=== PATIENT | female | born 1990 | race Caucasian/White ===

== ENCOUNTER 2023-03-03 16:43 | Emergency (ER) | payer OTHER, SELFPAY ==
[2023-03-03 16:44] VITALS: BP 125/87; PULSE 93; RESP 20; TEMP 36.8; O2SAT 99
--- NOTE | 2023-03-03 17:05 | ED.GENADULT ---
HPI - General Adult General Chief complaint: Unspecified <TA Carrasco Last Filed: 03/03/23 17:16> Stated complaint: ST, headache and body aches <TA Carrasco Last Filed: 03/03/23 17:16> Time Seen by Provider: 03/03/23 18:58 <TA Carrasco Last Filed: 03/03/23 17:16> Source: patient <TA Carrasco Last Filed: 03/03/23 17:16> Mode of arrival: ambulatory <TA Carrasco Last Filed: 03/03/23 17:16> Limitations: no limitations <TA Carrasco Last Filed: 03/03/23 17:16> History of Present Illness HPI narrative: Patient is a 32 y/o female who presents to the ED with c/o URI sx's since Friday. Patient sore throat, sinus pressure, sinus congestion, myalgias, loss of appetite, subjective fevers, chills, nausea. She has been taking sudafed, nyquil, and theraflu for her sx's without significant improvement. She has not taken anything for her symptoms today. She does report daughter has been sick with similar sx's and received abx for ear infection. Patient denies vomiting, abdominal pain, cough, SOB, CP. <TA Carrasco Last Filed: 03/03/23 17:16> Related Data Allergies/adverse reactions: Allergies Allergy/AdvReac Type Severity Reaction Status Date / Time No Known Allergies Allergy Verified 03/03/23 16:46 <TA Carrasco Last Filed: 03/03/23 17:16> Review of Systems Constitutional: Constitutional: Reports body ache(s), Reports chills and Reports poor appetite <TA Carrasco Last Filed: 03/03/23 17:16> ENT: Reports nasal congestion, Reports nasal discharge, Reports sinus pain, Reports sinus pressure and Reports sore throat <Lisseth Jimenez PA-C Salvatore Last Filed: 03/03/23 17:16> Cardiovascular: Cardiovascular: Denies chest pain <Lisseth Jimenez PA-C Salvatore Last Filed: 03/03/23 17:16> Respiratory: Respiratory: Denies chest congestion and Denies cough <Lisseth Jimenez PA-C Salvatore Last Filed: 03/03/23 17:16> Gastrointestinal: Gastrointestinal: Denies abdominal pain, Reports nausea and Denies vomiting <Lisseth Jimenez PA-C Salvatore Last Filed: 03/03/23 17:16> Exam Const: General: cooperative, comfortable, no acute distress and tired appearing <TA Carrasco Last Filed: 03/03/23 17:16> Nutritional Appearance: well nourished <Lisseth Jimenez PA-C Salvatore Last Filed: 03/03/23 17:16> Orientation/consciousness: oriented to person <Lisseth Jimenez PA-C Salvatore Last Filed: 03/03/23 17:16> Limitations: no limitations <ALEJANDRINA Carrasco Salvatore Last Filed: 03/03/23 17:16> HENMT: Ears: TM normal on the right and TM abnormal erythematous (mildly erythematous L TM); not bulging and not perforated <Lisseth Jimenez PA-C Salvatore Last Filed: 03/03/23 17:16> Face/Nose/Sinus: sinus tenderness <TA Carrasco Last Filed: 03/03/23 17:16> Mouth: Yes Normal oral and palatal mucosa present <Lisseth Jimenez PA-C Salvatore Last Filed: 03/03/23 17:16> Throat: tonsils normal, uvula midline and posterior oropharynx abnormal (redness) erythema; no exudates <TA Carrasco Last Filed: 03/03/23 17:16> Resp: Effort & Inspection: normal respiratory effort and able to speak in complete sentences <TA Carrasco Last Filed: 03/03/23 17:16> Auscultation: clear to auscultation bilaterally <Lisseth Jimenez PA-C - Last Filed: 03/03/23 17:16> Cardio: Rate: regular rate <Lisseth Jimenez PA-C - Last Filed: 03/03/23 17:16> Rhythm: regular rhythm <Lisseth Jimenez PA-C - Last Filed: 03/03/23 17:16> Course Vital Signs Vital signs: Vital Signs Temperature 98.3 F 03/03/23 16:44 Pulse Rate 93 03/03/23 16:44 Respiratory Rate 20 03/03/23 16:44 Blood Pressure 125/87 03/03/23 16:44 Pulse Oximetry 99 03/03/23 16:44 Oxygen Delivery Room Air 03/03/23 16:44 Temperature 98.3 F
[2023-03-03] MEDS: ACETAMINOPHEN 500 MG TABLET 1000 MG PO (17:11)
[2023-03-03] MEDS: IBUPROFEN 600 MG TABLET PO (17:11)
[2023-03-03] MEDS: ONDANSETRON HCL ODT 4 MG TABLET PO (17:15)
[2023-03-03 17:42] LABS: Strep Group A RT-PCR NOT DETECTED (Negative)
[2023-03-03 17:53] LABS: Influenza A QL RT-PCR Negative (Negative); Influenza B QL RT-PCR Negative (Negative); SARS-CoV-2 RNA PCR Negative (Negative)
--- NOTE | 2023-03-03 19:12 | PC.NURSE ---
Assumed care of pt from MARY Bernal at this time.
[2023-03-03 19:27] VITALS: BP 132/79; PULSE 90; RESP 17; O2SAT 99
== END 2023-03-03 19:29 | disposition home or self-care (01) ==
PROVIDERS: Physician Assistant; Emergency Provider Physician Assistant
DX: B34.9 Viral infection, unspecified (principal)
CPT/HCPCS: 87636; 87651; 99283; A9270

== ENCOUNTER 2023-07-03 19:41 | Emergency (ER) | payer OTHER, SELFPAY ==
--- NOTE | ~2023-07-03 | US_ITS ---
EXAMINATION: US OB transvaginal DATE: 07/03/2023 23:44 INDICATION: Pelvic pain during first trimester TECHNIQUE: Real-time pelvic transabdominal and transvaginal ultrasound was performed. COMPARISON: None. FINDINGS: The uterus measures 6.7 x 4.2 x 5.2 cm. There is an intrauterine fluid collection measuring 6 mm which correlates with an estimated gestational age of 5 weeks and 2 day(s) (+/-) 3 day(s). No f etal pole is identified. The right ovary measures 1.4 x 2.2 x 1.5 cm. The left ovary measures 1.4 x 2 .7 x 2.9 cm. There is normal vascular flow in the ovaries. There is no free fluid in the pelvis. IMPRESSION: 1. Intrauterine gestational sac without visible pole, likely due to early gestation. Estimated gestational age of 5 weeks and 2 day(s) (+/-) 3 day(s) and an estimated delivery date of 03/02/2024 b ased on mean sac diameter. Reviewed, dictated and finalized at location F. IMPRESSION: 1. Intrauterine gestational sac without visible pole, likely due to early gestation. Estimated gestational age of 5 weeks and 2 day(s) (+/-) 3 day(s) an d an estimated delivery date of 03/02/2024 based on mean sac diameter.
[2023-07-03 19:55] VITALS: BP 128/84; PULSE 96; RESP 20; TEMP 36.4; O2SAT 99
[2023-07-03 20:44] LABS: Influenza A QL RT-PCR Negative (Negative); Influenza B QL RT-PCR Negative (Negative); RSV RNA, RT-PCR Negative (Negative); SARS-CoV-2 RNA PCR Negative (Negative)
--- NOTE | 2023-07-03 23:11 | ED.GENADULT ---
HPI - General Adult General Chief complaint: Nausea/Vomiting/Diarrhea Stated complaint: vomiting/diarrhea Time Seen by Provider: 07/03/23 22:04 History of Present Illness HPI narrative: This is a 32-year-old female presenting with 3 days of nausea vomiting and diarrhea. Her family is also sick with similar/symptoms. Patient also has sharp left lower quadrant pain. Patient is approximately 5 weeks by last menstrual. [facility] and had ultrasound showing no gestational sac in the uterus. She is supposed to return there tomorrow for repeat hCG but was told to present to emergency department if she developed abdominal pain. Patient denies vaginal bleeding discharge or urinary symptoms. Related Data Allergies Allergy/AdvReac Type Severity Reaction Status Date / Time No Known Allergies Allergy Verified 03/03/23 16:46 Exam Narrative: APPEARANCE: No apparent distress. Head: atraumatic. EYES: EOMI, NOSE: Atraumatic NECK: Trachea midline RESPIRATORY: No increased rate of breathing CARDIOVASCULAR: RRR, ABDOMINAL: Tenderness to palpation in the suprapubic and left lower quadrant. No guarding rebound MUSCULOSKELETAl: No obvious deformities NEURO: Alert. Moving 4/4 extremities SKIN:: Warm, dry. Normal color PSYCHIATRIC: Normal affect Course Vital Signs Vital signs: Vital Signs Temperature 97.6 F 07/03/23 19:55 Pulse Rate 96 07/03/23 19:55 Respiratory Rate 20 07/03/23 19:55 Blood Pressure 128/84 07/03/23 19:55 Pulse Oximetry 99 07/03/23 19:55 Oxygen Delivery Room Air 07/03/23 19:55 Temperature 97.6 F 07/03/23 19:55 Pulse Rate 93 07/04/23 00:54 Respiratory Rate 16 07/04/23 00:54 Blood Pressure 133/82 07/04/23 00:54 Pulse Oximetry 100 07/04/23 00:54 Oxygen Delivery Room Air 07/03/23 19:55 Medical Decision Making [facility] Narrative Medical decision making narrative: -Course: 32-year-old female presenting with symptoms of gastroenteritis and left lower quadrant pain. Presentation is complicated by an early of unknown location. Ultrasound was ordered which showed an intrauterine gestational sac. Abdominal pain likely due to gastroenteritis. [facility] -DDX includes but is not limited to: gastroenteritis, ectopic -Co-morbidities complicating care: -Social determinants of health: unemployed lives with her child -Independent interpretation of studies: Labs reviewed transvaginal ultrasound showed intrauterine gestational sac -Interventions: Tylenol -Shared decision making / Disposition: discharge Vital Signs Vital Signs: Vital Signs Temperature 97.6 F 07/03/23 19:55 Pulse Rate 96 07/03/23 19:55 Respiratory Rate 20 07/03/23 19:55 Blood Pressure 128/84 07/03/23 19:55 Pulse Oximetry 99 07/03/23 19:55 Oxygen Delivery Room Air 07/03/23 19:55 Temperature 97.6 F 07/03/23 19:55 Pulse Rate 93 07/04/23 00:54 Respiratory Rate 16 07/04/23 00:54 Blood Pressure 133/82 07/04/23 00:54 Pulse Oximetry 100 07/04/23 00:54 Oxygen Delivery Room Air 07/03/23 19:55 Lab Data 07/04/23 00:28 07/04/23 00:28 Labs: Lab Results 07/03/23 07/04/23 07/04/23 Range/Units 19:58 00:00 00:27 WBC (4.5-10.0) K/mm3 RBC (4.2-5.4) M/mm3 Hgb (12.0-15.0) g/dL Hct (37.0-47.0) % MCV (80-100) fl MCH (26-34) pg MCHC (32-36) g/dl RDW (11.5-14.5) % Plt Count (150-375) k/mm3 MPV (7.4-10.4) fl Immature Gran % (Auto) (0-0.5) % Neut % (Auto) (45.5-73.1) % Lymph % (Auto) (18.3-44.2) % [place] % (Auto) (2.6-8.5) % Eos % (Auto) (0-4.4) % Baso % (Auto) (0.2-1.2) % Lymph # (Auto) (0.9-3.2) K/mm3 [place] # (Auto) (0.1-0.6) K/mm3 Eos # (Auto) (0-0.3) K/mm3 Baso # (Auto) (0.0-0.1) K/mm3
[2023-07-04 00:02] LABS: Glucose Point of Care 78 mg/dl (65-105)
[2023-07-04 00:34] LABS: Basophils Absolute Auto 0.1 K/mm3 (0.0-0.1); Basophils Percent Auto 0.4 % (0.2-1.2); Eosinophils Absolute Auto 0.2 K/mm3 (0-0.3); Eosinophils Percent Auto 1.5 % (0-4.4); Hemoglobin 14.5 g/dL (12.0-15.0); Immature Granulocyte Absolute 0.04 K/mm3 (0.00-0.031); Immature Granulocyte Percent A 0.4 % (0-0.5); Lymphocytes Absolute Auto 1.89 K/mm3 (0.9-3.2); Lymphocytes Percent Auto 16.6 % (18.3-44.2); Mean Corpuscular Hemoglobin 30.2 pg (26-34); Mean Corpuscular Volume 91.7 fl (80-100); Monocytes Absolute Auto 0.7 K/mm3 (0.1-0.6); Monocytes Percent Auto 6.2 % (2.6-8.5); Neutrophils Absolute Auto 8.5 K/mm3 (1.3-6.7); Neutrophils Percent Auto 74.9 % (45.5-73.1); Platelet Count Result 298 k/mm3 (150-375); Red Cell Distribution Width 13.2 % (11.5-14.5); White Blood Count 11.4 K/mm3 (4.5-10.0)
[2023-07-04 00:49] LABS: Appearance Urine Clear (Clear); Bacteria Urine None Seen /hpf; Bilirubin Urine Negative (Negative); Blood Urine 2+ (Negative); Color Urine Dark Yellow (Yellow); Glucose Urine UA Negative (Negative); Ketones Urine 1+ mg/dL (Negative); Leukocyte Esterase Ur Negative LEU/UL (Negative); Mucus Urine Present /lpf; Need Manual Microscopic Reviewed; Nitrate Urine Negative (Negative); Protein Urine 1+ mg/dL (Negative); Squamous Epithelial Cell Urine Occasional /hpf (Few); WBC Urine 0-5 /hpf (0-3); pH Urine 5.5 (5.0-9.0)
[2023-07-04 00:51] LABS: Specific Grav Ur 1.032 (1.001-1.035)
[2023-07-04 00:52] LABS: Add Urine Microscopic? YES
[2023-07-04] MEDS: ACETAMINOPHEN 500 MG TABLET 1000 MG PO (00:52)
[2023-07-04 00:54] VITALS: BP 133/82; PULSE 93; RESP 16; O2SAT 100
[2023-07-04 00:54] LABS: Alanine Aminotransferase 110 U/L (6-35); Albumin Level 4.6 g/dL (3.5-5.1); Alkaline Phosphatase 60 U/L (38-126); Anion Gap 9 mmol/L (8-16); Aspartate Amino Transferase 71 U/L (14-36); Bilirubin,Total 0.3 mg/dL (0.2-1.3); Blood Urea Nitrogen 11 mg/dL (7-17); Calcium 9.3 mg/dL (8.4-10.2); Carbon Dioxide 20 mmol/L (22-30); Chloride 107 mmol/L (98-107); Estimated CRCL calculation 131 ml/min; Estimated Glomerular Filt Rate > 60; Glucose 94 mg/dL (65-110); Potassium 3.3 mmol/L (3.4-5.0); Sodium 136 mmol/L (137-145)
--- NOTE | 2023-07-04 01:45 | PC.NURSE ---
Pt tolerating PO intake. Will be discharged home.
[2023-07-04 02:12] VITALS: BP 134/76; PULSE 87; RESP 20; O2SAT 99
== END 2023-07-04 02:13 | disposition home or self-care (01) ==
PROVIDERS: Emergency Provider Emergency Medicine
DX: O99.611 Diseases of the digestive system complicating pregnancy, first trimester (principal); K52.9 Noninfective gastroenteritis and colitis, unspecified; Z20.822 Contact with and (suspected) exposure to COVID-19; Z3A.01 Less than 8 weeks gestation of pregnancy
CPT/HCPCS: 36415; 76817; 80053; 82948; 84702; 85025; 85461; 86850; 86900; 86901; 87637; 99284; A9270

== ENCOUNTER 2023-08-15 18:23 | Emergency (ER) | payer OTHER, SELFPAY ==
--- NOTE | ~2023-08-15 | US_ITS ---
EXAMINATION: US OB <= 14 weeks fetus DATE: 08/15/2023 22:18 INDICATION: Pelvic pain. Spotting. TECHNIQUE: Real-time transabdominal pelvic ultrasound was performed. COMPARISON: Ultrasound 07/03/2023 FINDINGS: The uterus measures 9.7 x 9.1 x 9.6 cm. There is an intrauterine gestational sac. The crown rum p length measures 4.3 cm, which correlates with an estimated gestational age of 11 weeks and 1 day(s) (+/-) 1 week(s) and 0 day(s). heart motion is identified measuring 149 beats per minute (bpm) by M-mode Doppler. The right ovary measures 3.7 x 3.5 x 3.2 cm. The left ovary measures 3.7 x 2.1 x 3 .1 cm. There is no free fluid in the pelvis. IMPRESSION: 1. Single living intrauterine gestation with estimated date of delivery of 03/02/2024 based on the u ltrasound from 07/03/2023. Reviewed, dictated and finalized at location E. IMPRESSION: 1. Single living intrauterine gestation with estimated date of delivery of based on the ultrasound from 07/03/2023.
[2023-08-15 18:26] VITALS: BP 149/80; PULSE 67; RESP 18; TEMP 36.3; O2SAT 100
[2023-08-15 20:18] LABS: Basophils Absolute Auto 0.1 K/mm3 (0.0-0.1); Basophils Percent Auto 0.6 % (0.2-1.2); Eosinophils Absolute Auto 0.7 K/mm3 (0-0.3); Eosinophils Percent Auto 6.9 % (0-4.4); Hematocrit 38.2 % (37.0-47.0); Hemoglobin 12.4 g/dL (12.0-15.0); Immature Granulocyte Absolute 0.03 K/mm3 (0.00-0.031); Immature Granulocyte Percent A 0.3 % (0-0.5); Lymphocytes Absolute Auto 4.21 K/mm3 (0.9-3.2); Lymphocytes Percent Auto 40.6 % (18.3-44.2); Mean Corpuscular HGB Conc 32.5 g/dl (32-36); Mean Corpuscular Hemoglobin 30.5 pg (26-34); Mean Corpuscular Volume 93.9 fl (80-100); Monocytes Absolute Auto 0.5 K/mm3 (0.1-0.6); Monocytes Percent Auto 4.4 % (2.6-8.5); Neutrophils Absolute Auto 4.9 K/mm3 (1.3-6.7); Neutrophils Percent Auto 47.2 % (45.5-73.1); Platelet Count Result 303 k/mm3 (150-375); Red Blood Count 4.07 M/mm3 (4.2-5.4); Red Cell Distribution Width 13.4 % (11.5-14.5); White Blood Count 10.4 K/mm3 (4.5-10.0)
[2023-08-15 20:27] LABS: Bacteria Urine Rare /hpf; Non Pathogenic Casts 0-2; Squamous Epithelial Cell Urine None Seen /hpf (Few); WBC Urine 0-5 /hpf (0-3)
[2023-08-15 20:32] LABS: Appearance Urine Clear (Clear); Bilirubin Urine Negative (Negative); Blood Urine 3+ (Negative); Color Urine Yellow (Yellow); Glucose Urine UA Negative (Negative); Ketones Urine Negative (Negative); Leukocyte Esterase Ur Negative LEU/UL (Negative); Nitrate Urine Negative (Negative); Protein Urine Negative (Negative); Urobilinogen Urine 0.2 mg/dL (<2.0); pH Urine 6.5 (5.0-9.0)
[2023-08-15 20:38] LABS: Add Urine Microscopic? YES
[2023-08-15 20:56] LABS: Alanine Aminotransferase 13 U/L (6-35); Albumin Level 4.3 g/dL (3.5-5.1); Alkaline Phosphatase 51 U/L (38-126); Anion Gap 6 mmol/L (4-12); Aspartate Amino Transferase 19 U/L (14-36); Bilirubin,Total 0.5 mg/dL (0.2-1.3); Blood Urea Nitrogen 9 mg/dL (7-17); Calcium 9.4 mg/dL (8.4-10.2); Carbon Dioxide 24 mmol/L (22-30); Chloride 107 mmol/L (98-107); Estimated CRCL calculation 154 ml/min; Estimated Glomerular Filt Rate > 60; Glucose 121 mg/dL (65-110); Potassium 3.7 mmol/L (3.4-5.0); Sodium 137 mmol/L (137-145)
[2023-08-15] MEDS: SODIUM CHLORIDE 0.9% IV 1,000 ML 999 ML IV CONT (21:42)
--- NOTE | 2023-08-15 22:47 | ED.GENADULT ---
HPI - General Adult General Chief complaint: Vaginal Bleeding Stated complaint: 11 weeks with vaginal bleeding Time Seen by Provider: 08/15/23 21:21 History of Present Illness HPI narrative: patient is a 32-year-old female who presents emergency department with chief complaint of vaginal bleeding. The patient reports that she is approximately 11 weeks and reports that she started having some bleeding this evening and know his reduced to spotting. The patient states she has abdominal cramping reports he has not had an ultrasound to confirm whether she has an intrauterine . Related Data Home Medications Medication Instructions Recorded Confirmed vits no.126-ferrous fum tablet PO 08/08/23 28 mg iron-folic acid 800 mcg tablet (Classic ) Allergies Allergy/AdvReac Type Severity Reaction Status Date / Time No Known Allergies Allergy Verified 08/15/23 18:29 Review of Systems Review of Systems: A 10 system review of systems was completed on the patient and is negative except for what is stated in the HPI. Nursing and ancillary documentation was reviewed. PMFSH Past Medical History Medical History Preeclampsia Suppression of menses Surgical History Surgical History H/O LEEP History of ear surgery Family History Family History Father Hypertension Social History Social History Smoking status: Never smoker Alcohol intake: never Substance use: never Do You Feel Safe in your Home?: Yes Lack of Transportation: No Lack of Food: Never True Current Housing: I Have Housing Concerned About Future Housing: No Difficulty Paying Gas/Electric Bills: No Difficulty Paying for Meds: No Currently Unemployed: No Education: Trade/Vocational Certificate Difficulty w/ Childcare or Family Care: No Living arrangements: with family Occupation/Education: occupation Gender identity (if verbalized by the patient): Female Exam Narrative: GENERAL: Well-appearing, well-nourished, and in no acute distress. HEAD: Normocephalic, atraumatic. EYES: PERRLA and EOMI. ENT: Nares clear, no rhinorrhea or epistaxis. Mucous membranes moist. NECK: Supple. CHEST: Clear to auscultation. No respiratory distress. HEART: Regular rate and rhythm. No murmur heard. Normal peripheral pulses. ABDOMEN: Soft, nontender, nondistended, normal active bowel sounds. EXTREMITIES: Normal range of motion. No edema. SKIN: Warm, dry, no rash. NEURO: No focal deficits. Alert and oriented x3. PSYCH: Normal mood and affect. Course Vital Signs Vital signs: Vital Signs Temperature 36.3 C L 08/15/23 18:26 Pulse Rate 67 08/15/23 18:26 Respiratory Rate 18 08/15/23 18:26 Blood Pressure 149/80 H 08/15/23 18:26 Pulse Oximetry 100 08/15/23 18:26 Oxygen Delivery Room Air 08/15/23 18:26 Temperature 36.3 C L 08/15/23 18:26 Pulse Rate 67 08/15/23 18:26 Respiratory Rate 18 08/15/23 18:26 Blood Pressure 149/80 H 08/15/23 18:26 Pulse Oximetry 100 08/15/23 18:26 Oxygen Delivery Room Air 08/15/23 18:26 Medical Decision Making [facility] Narrative Medical decision making narrative: Differential diagnosis includes threatened miscarriage, inevitable miscarriage, laboratory studies were obtained on the patient which showed a white count of 10.4 hemoglobin was 12.4 electrolytes within normal limits hCG was 14,894 patient is O positive urinalysis showed no evidence of UTI ultrasound showed .? Single living intrauterine gestation with estimated date of delivery of 03/02/2024 based on the ultrasound from 07/03/2023. Vital Signs Vital Signs: Vital Signs Temperature 36.3 C L 08/15/23 18:26
[2023-08-15 23:06] VITALS: BP 134/78; PULSE 71; RESP 16; O2SAT 100
== END 2023-08-15 23:07 | disposition home or self-care (01) ==
PROVIDERS: Emergency Provider Emergency Medicine
DX: O20.0 Threatened abortion (principal); O09.521 Supervision of elderly multigravida, first trimester; Z3A.11 11 weeks gestation of pregnancy
CPT/HCPCS: 36415; 76801; 80053; 81001; 81025; 84702; 85025; 85461; 86850; 86900; 86901; 96360; 99284; J7030

== ENCOUNTER 2023-09-23 19:52 | Emergency (ER) | payer MEDICAID, SELFPAY ==
[2023-09-23 20:02] VITALS: BP 139/84; PULSE 69; RESP 14; TEMP 36.7; O2SAT 100
[2023-09-23 20:29] LABS: Basophils Absolute Auto 0.1 K/mm3 (0.0-0.1); Basophils Percent Auto 0.4 % (0.2-1.2); Eosinophils Absolute Auto 0.7 K/mm3 (0-0.3); Eosinophils Percent Auto 5.1 % (0-4.4); Hematocrit 38.5 % (37.0-47.0); Hemoglobin 12.9 g/dL (12.0-15.0); Immature Granulocyte Absolute 0.05 K/mm3 (0.00-0.031); Immature Granulocyte Percent A 0.4 % (0-0.5); Lymphocytes Absolute Auto 3.88 K/mm3 (0.9-3.2); Lymphocytes Percent Auto 27.5 % (18.3-44.2); Mean Corpuscular HGB Conc 33.5 g/dl (32-36); Mean Corpuscular Hemoglobin 31.2 pg (26-34); Mean Platelet Volume 10.6 fl (7.4-10.4); Monocytes Absolute Auto 0.7 K/mm3 (0.1-0.6); Monocytes Percent Auto 4.6 % (2.6-8.5); Neutrophils Absolute Auto 8.8 K/mm3 (1.3-6.7); Platelet Count Result 306 k/mm3 (150-375); Red Blood Count 4.14 M/mm3 (4.2-5.4); Red Cell Distribution Width 12.9 % (11.5-14.5); White Blood Count 14.1 K/mm3 (4.5-10.0)
[2023-09-23 20:37] LABS: Alanine Aminotransferase 20 U/L (6-35); Albumin Level 4.2 g/dL (3.5-5.1); Alkaline Phosphatase 66 U/L (38-126); Anion Gap 9 mmol/L (4-12); Aspartate Amino Transferase 20 U/L (14-36); Bilirubin,Total 0.3 mg/dL (0.2-1.3); Blood Urea Nitrogen 9 mg/dL (7-17); Calcium 10.1 mg/dL (8.4-10.2); Carbon Dioxide 23 mmol/L (22-30); Chloride 104 mmol/L (98-107); Estimated CRCL calculation 149 ml/min; Estimated Glomerular Filt Rate > 60; Glucose 115 mg/dL (65-110); Lipase 48 U/L (23-300); Potassium 3.7 mmol/L (3.4-5.0); Sodium 136 mmol/L (137-145)
[2023-09-23] MEDS: ACETAMINOPHEN 500 MG TABLET 1000 MG PO (20:46)
[2023-09-23] MEDS: SODIUM CHLORIDE 0.9% IV 1,000 ML 999 ML IV CONT (20:47)
[2023-09-23 21:06] LABS: Appearance Urine Clear (Clear); Bacteria Urine None Seen /hpf; Bilirubin Urine Negative (Negative); Blood Urine 1+ (Negative); Color Urine Yellow (Yellow); Glucose Urine UA Negative (Negative); Ketones Urine Trace mg/dL (Negative); Leukocyte Esterase Ur Negative LEU/UL (Negative); Nitrate Urine Negative (Negative); Non Pathogenic Casts 0-2; Protein Urine Negative (Negative); RBC Urine 0-2 /hpf (0-2); Specific Grav Ur 1.016 (1.001-1.035); Squamous Epithelial Cell Urine Occasional /hpf (Few); Urobilinogen Urine 0.2 mg/dL (<2.0); WBC Urine 0-5 /hpf (0-3); pH Urine 5.5 (5.0-9.0)
[2023-09-23 21:07] LABS: Add Urine Microscopic? YES
--- NOTE | 2023-09-23 21:44 | ED.ABDPAIN ---
HPI - Abdominal Pain General Chief Complaint: Abdominal Pain Stated Complaint: vomiting and diarrhea since Friday Time Seen by Provider: 09/23/23 20:04 History of Present Illness HPI narrative: 33-year-old female that is approximately 16 weeks and follows up with Dr. Selby present to the emergency department for evaluation of some intermittent left lower quadrant pain. Patient states that the pain has been occurring over the last few days. Patient also does report some headache. Patient has not yet felt the baby move. Patient denies any vaginal bleeding vaginal discharge. Patient denies any pain with urination. Patient has had some nausea. Related Data Home Medications Medication Instructions Recorded Confirmed vits no.126-ferrous fum tablet PO 08/08/23 08/19/23 28 mg iron-folic acid 800 mcg tablet (Classic ) Allergies Allergy/AdvReac Type Severity Reaction Status Date / Time No Known Allergies Allergy Verified 09/23/23 20:17 Review of Systems Review of Systems: All systems reviewed & are unremarkable except as noted in HPI and below PMFSH Past Medical History Medical History Preeclampsia Suppression of menses Surgical History Surgical History H/O LEEP History of ear surgery Family History Family History Father Hypertension Social History Social History Smoking status: Never smoker Alcohol intake: never Substance use: never Do You Feel Safe in your Home?: Yes Lack of Transportation: No Lack of Food: Never True Current Housing: I Have Housing Concerned About Future Housing: No Difficulty Paying Gas/Electric Bills: No Difficulty Paying for Meds: No Currently Unemployed: No Education: Trade/Vocational Certificate Difficulty w/ Childcare or Family Care: No Living arrangements: with family Occupation/Education: occupation Gender identity (if verbalized by the patient): Female Exam Narrative: APPEARANCE: Well appearing, no pain, no distress, well-nourished. HEAD: normocephalic, atraumatic. EYES: PERRLA/EOMI, conjunctivae clear. NOSE: Normal no drainage EARS:TMS clear with good light reflex. THROAT: Pharynx clear, no exudate. NECK: Supple. No adenopathy, no masses. RESPIRATORY: Airway patent, respirations nonlabored. Clear to auscultation bilaterally, no rales, rhonchi, wheezing. CARDIOVASCULAR: Regular rate and rhythm without murmurs rubs or gallops. ABDOMINAL: Minimal left lower quadrant tenderness to palpation MUSCULOSKELETAL: Moves all extremities. Strength/ROM intact, No edema, No calf tenderness. NEURO: Alert. Cranial nerves II through XII intact. Good gait. Good coordination SKIN: Warm, dry. Normal Color Course Vital Signs Vital signs: Vital Signs Temperature 98.1 F 09/23/23 20:02 Pulse Rate 69 09/23/23 20:02 Respiratory Rate 14 09/23/23 20:02 Blood Pressure 139/84 09/23/23 20:02 Pulse Oximetry 100 09/23/23 20:02 Oxygen Delivery Room Air 09/23/23 20:02 Temperature 98.1 F 09/23/23 20:02 Pulse Rate 78 09/23/23 22:00 Respiratory Rate 16 09/23/23 22:00 Blood Pressure 140/80 09/23/23 22:00 Pulse Oximetry 100 09/23/23 22:00 Oxygen Delivery Room Air 09/23/23 20:02 MDM - Abdominal Pain MDM Narrative Medical decision making narrative: 33-year-old female present to the ED for evaluation for headache and left lower quadrant pain. Patient is afebrile but does have a leukocytosis of 14.1 which is not significantly elevated for . Patient has normal lipase and no other acute abnormalities on her CMP. UA was negative for infection. Bedside ultrasound shows active movement without a heart rate 152. Patient was treated with IV fluids and does
[2023-09-23 22:00] VITALS: BP 140/80; PULSE 78; RESP 16; O2SAT 100
== END 2023-09-23 22:01 | disposition home or self-care (01) ==
PROVIDERS: Emergency Provider Emergency Medicine
DX: O26.892 Other specified pregnancy related conditions, second trimester (principal); R10.32 Left lower quadrant pain; Z3A.16 16 weeks gestation of pregnancy
CPT/HCPCS: 36415; 80053; 81001; 81025; 83690; 85025; 96360; 99283; A9270; J7030

== ENCOUNTER 2023-12-12 20:43 | Observation (INO) | payer OTHER, SELFPAY ==
[2023-12-12 20:56] VITALS: BMI 34.3
--- NOTE | 2023-12-12 20:56 | OBADM ---
This patient, Deloris Tong, admitted to the OB room OB Post 116 for observation. Patient/family oriented to hospital policies and general routines including ID bracelet, bed and alarms, visiting hours, pain management, procedures, bathroom and other care routines, personal items, smoking policy, room service/diet, and visiting hours. Patient/Family are encouraged to report perceived risks to care and to ask questions if they do not understand what they are told or what they should do.
[2023-12-12 21:15] VITALS: BP 125/81; PULSE 65
[2023-12-12 21:18] LABS: Basophils Absolute Auto 0.1 K/mm3 (0.0-0.1); Basophils Percent Auto 0.4 % (0.2-1.2); Eosinophils Absolute Auto 0.5 K/mm3 (0-0.3); Eosinophils Percent Auto 4.1 % (0-4.4); Hematocrit 34.9 % (37.0-47.0); Hemoglobin 11.8 g/dL (12.0-15.0); Immature Granulocyte Absolute 0.04 K/mm3 (0.00-0.031); Immature Granulocyte Percent A 0.3 % (0-0.5); Lymphocytes Absolute Auto 3.76 K/mm3 (0.9-3.2); Lymphocytes Percent Auto 29.9 % (18.3-44.2); Mean Corpuscular HGB Conc 33.8 g/dl (32-36); Mean Corpuscular Hemoglobin 31.4 pg (26-34); Mean Corpuscular Volume 92.8 fl (80-100); Mean Platelet Volume 11.1 fl (7.4-10.4); Monocytes Absolute Auto 0.8 K/mm3 (0.1-0.6); Monocytes Percent Auto 6.6 % (2.6-8.5); Neutrophils Absolute Auto 7.4 K/mm3 (1.3-6.7); Neutrophils Percent Auto 58.7 % (45.5-73.1); Platelet Count Result 269 k/mm3 (150-375); Red Blood Count 3.76 M/mm3 (4.2-5.4); White Blood Count 12.6 K/mm3 (4.5-10.0)
[2023-12-12 21:28] LABS: Uric Acid 5.1 mg/dL (2.5-7.5)
[2023-12-12 21:29] LABS: Alanine Aminotransferase 22 U/L (6-35); Albumin Level 3.5 g/dL (3.5-5.1); Alkaline Phosphatase 95 U/L (38-126); Anion Gap 12 mmol/L (4-12); Aspartate Amino Transferase 22 U/L (14-36); Bilirubin,Total 0.2 mg/dL (0.2-1.3); Blood Urea Nitrogen 11 mg/dL (7-17); Calcium 9.2 mg/dL (8.4-10.2); Carbon Dioxide 19 mmol/L (22-30); Chloride 104 mmol/L (98-107); Estimated CRCL calculation 148 ml/min; Estimated Glomerular Filt Rate > 60; Glucose 113 mg/dL (65-110); Potassium 3.7 mmol/L (3.4-5.0); Sodium 135 mmol/L (137-145)
[2023-12-12 21:30] VITALS: BP 131/79; PULSE 62
--- NOTE | 2023-12-12 21:41 | PC.NURSE ---
Pt presents to unit with complaints of headache and visual disturbances since this afternoon. Pt denies RUQ pain, LOF, or vaginal bleeding, or contractions. Pt denies taking any medication to treat CARRILLO prior to arrival to unit. Pt states that she hates water and has only had 4 bottles today . Pt states that she also went on a walk outside this afternoon. Pt educated on importance of PO hydration. Pt verbalizes understanding.
[2023-12-12 21:45] VITALS: BP 125/70; PULSE 74
[2023-12-12 21:47] LABS: Add Urine Microscopic? YES; Appearance Urine Clear (Clear); Bacteria Urine None Seen /hpf; Bilirubin Urine Negative (Negative); Blood Urine 1+ (Negative); Color Urine Yellow (Yellow); Glucose Urine UA Negative (Negative); Ketones Urine Negative (Negative); Leukocyte Esterase Ur Negative LEU/UL (Negative); Nitrate Urine Negative (Negative); Non Pathogenic Casts 0-2; Protein Urine Negative (Negative); Specific Grav Ur 1.015 (1.001-1.035); Squamous Epithelial Cell Urine Occasional /hpf (Few); WBC Urine 0-5 /hpf (0-3)
[2023-12-12 22:00] VITALS: BP 123/73; PULSE 66
[2023-12-12] MEDS: ACETAMINOPHEN 500 MG TABLET 1000 MG PO (22:06)
--- NOTE | 2024-01-12 09:49 | PM.OBTRLD ---
OB - Triage/Final Diagnosis Visit Information Comments/Additional reasons for admission: I have assessed the risk for this patient, Deloris Tong, and determined that she would benefit from observation care. Evaluation Laboratory results: Laboratory Tests 12/12/23 21:01 WBC 12.6 H RBC 3.76 L Hgb 11.8 L Hct 34.9 L MCV 92.8 MCH 31.4 MCHC 33.8 RDW 13.0 Plt Count 269 MPV 11.1 H Immature Gran % (Auto) 0.3 Neut % (Auto) 58.7 Lymph % (Auto) 29.9 [place] % (Auto) 6.6 Eos % (Auto) 4.1 Baso % (Auto) 0.4 Lymph # (Auto) 3.76 H [place] # (Auto) 0.8 H Eos # (Auto) 0.5 H Baso # (Auto) 0.1 Abs Immat Gran (auto) 0.04 H Absolute Neuts (auto) 7.4 H Absolute Nucleated RBC 0.000 Nucleated RBC % 0.0 Sodium 135 L Potassium 3.7 Chloride 104 Carbon Dioxide 19 L Anion Gap 12 BUN 11 Creatinine 0.50 L Estim Creat Clear Calc 148 Estimated GFR > 60 Glucose 113 H Uric Acid 5.1 Calcium 9.2 Total Bilirubin 0.2 AST 22 ALT 22 Alkaline Phosphatase 95 Total Protein 7.0 Albumin 3.5 Urine Color Yellow Urine Appearance Clear Urine pH 6.0 Ur Specific [place] 1.015 Urine Protein Negative Urine Glucose (UA) Negative Urine Ketones Negative Ur Blood (Man) 1+ H Urine Nitrate Negative Urine Bilirubin Negative Urine Urobilinogen 1.0 Leukocyte Esterase Rfl Negative Urine RBC 3-5 H Urine WBC 0-5 Ur Squamous Epith Cells Occasional Urine Bacteria None seen Urine Casts 0-2 Final Diagnosis (1) Headache in : Code(s): O26.899 - Other specified related conditions, unspecified trimester; R51.9 - Headache, unspecified Status: Acute
== END 2023-12-12 22:14 | disposition home or self-care (01) ==
PROVIDERS: Admitting Provider Obstetrics & Gynecology; Visit Provider Obstetrics & Gynecology
DX: O26.899 Other specified pregnancy related conditions, unspecified trimester (principal); R51.9 Headache, unspecified; Z3A.00 Weeks of gestation of pregnancy not specified
CPT/HCPCS: 36415; 80053; 81001; 84550; 85025; A9270; G0378; G0379

== ENCOUNTER 2023-12-27 21:21 | Observation (INO) | payer OTHER, SELFPAY ==
[2023-12-27 21:41] VITALS: BP 137/84; PULSE 70
[2023-12-27 21:48] VITALS: BMI 33.7
[2023-12-27 21:51] VITALS: TEMP 36.3
[2023-12-27 22:01] LABS: Add Urine Microscopic? YES; Appearance Urine Clear (Clear); Bacteria Urine None Seen /hpf; Bilirubin Urine Negative (Negative); Blood Urine Negative (Negative); Color Urine Yellow (Yellow); Glucose Urine UA Negative (Negative); Ketones Urine Negative (Negative); Leukocyte Esterase Ur Negative LEU/UL (Negative); Nitrate Urine Negative (Negative); Non Pathogenic Casts 0-2; Protein Urine Trace mg/dL (Negative); Specific Grav Ur 1.026 (1.001-1.035); Squamous Epithelial Cell Urine Few /hpf (Few); WBC Urine 0-5 /hpf (0-3); pH Urine 6.5 (5.0-9.0)
--- NOTE | 2023-12-27 22:22 | PC.NURSE ---
Called Dr. Cosme with pt status. Pt admitted for complaints of back pain and pressure. Abdomen soft with no CVA tenderness. Pt states that she has increased pain and pressure after voiding, frequency and feeling like she has to go to the bathroom, but only has a small amount come out. UA results given. August D/C home with Macrobid prescription. Give 1 dose of Macrobid before D/C.
[2023-12-27] MEDS: NITROFURANTOIN MONOHYD MACROCR 100 MG CAP PO (22:38)
--- NOTE | 2023-12-29 08:52 | PM.OBTRLD ---
OB - Triage/Final Diagnosis Visit Information Comments/Additional reasons for admission: I have assessed the risk for this patient, Deloris Tong, and determined that she would benefit from observation care. Evaluation Laboratory results: Laboratory Tests 12/27/23 21:40 Urine Color Yellow Urine Appearance Clear Urine pH 6.5 Ur Specific [place] 1.026 Urine Protein Trace Urine Glucose (UA) Negative Urine Ketones Negative Ur Blood (Man) Negative Urine Nitrate Negative Urine Bilirubin Negative Urine Urobilinogen 1.0 Ur Leukocyte Esterase Negative Urine RBC 3-5 H Urine WBC 0-5 Ur Squamous Epith Cells Few Urine Bacteria None seen Urine Casts 0-2 Final Diagnosis (1) UTI (urinary tract infection): Code(s): N39.0 - Urinary tract infection, site not specified Status: Acute
== END 2023-12-27 22:40 ==
PROVIDERS: Admitting Provider Student in an Organized Health Care Education/Training Program; Visit Provider Obstetrics & Gynecology
DX: O23.43 Unspecified infection of urinary tract in pregnancy, third trimester (principal); N39.0 Urinary tract infection, site not specified; Z3A.30 30 weeks gestation of pregnancy
CPT/HCPCS: 81001; 87086; 87088; A9270; G0378; G0379

== ENCOUNTER 2024-01-12 20:15 | Outpatient (CLI) | payer OTHER, SELFPAY ==
[2024-01-12 20:48] VITALS: BP 142/85; PULSE 72
[2024-01-12 20:54] VITALS: BMI 34.4
[2024-01-12 20:56] LABS: Add Urine Microscopic? NO; Appearance Urine Clear (Clear); Basophils Percent Auto 0.3 % (0.2-1.2); Bilirubin Urine Negative (Negative); Blood Urine Negative (Negative); Color Urine Yellow (Yellow); Eosinophils Absolute Auto 0.5 K/mm3 (0-0.3); Eosinophils Percent Auto 4.1 % (0-4.4); Glucose Urine UA Negative (Negative); Hematocrit 36.7 % (37.0-47.0); Hemoglobin 12.1 g/dL (12.0-15.0); Immature Granulocyte Absolute 0.02 K/mm3 (0.00-0.031); Immature Granulocyte Percent A 0.2 % (0-0.5); Ketones Urine Negative (Negative); Leukocyte Esterase Ur Negative LEU/UL (Negative); Lymphocytes Absolute Auto 3.56 K/mm3 (0.9-3.2); Lymphocytes Percent Auto 30.7 % (18.3-44.2); Mean Corpuscular Hemoglobin 30.6 pg (26-34); Mean Corpuscular Volume 92.9 fl (80-100); Mean Platelet Volume 11.4 fl (7.4-10.4); Monocytes Absolute Auto 0.9 K/mm3 (0.1-0.6); Monocytes Percent Auto 7.8 % (2.6-8.5); Neutrophils Absolute Auto 6.6 K/mm3 (1.3-6.7); Neutrophils Percent Auto 56.9 % (45.5-73.1); Nitrate Urine Negative (Negative); Platelet Count Result 249 k/mm3 (150-375); Protein Urine Negative (Negative); Red Blood Count 3.95 M/mm3 (4.2-5.4); Red Cell Distribution Width 13.4 % (11.5-14.5); Specific Grav Ur 1.009 (1.001-1.035); Urobilinogen Urine 0.2 mg/dL (<2.0); White Blood Count 11.6 K/mm3 (4.5-10.0); pH Urine 6.5 (5.0-9.0)
[2024-01-12 21:00] VITALS: BP 147/91; PULSE 75
[2024-01-12 21:01] VITALS: BP 147/91; PULSE 75
[2024-01-12 21:09] LABS: Creatinine Urine 52.2 mg/dL; Total Protein Urine Random 9 mg/dL; Ur Ttl Prot Creatinine Ratio 0.17 mg/mg (0-0.20)
[2024-01-12 21:15] VITALS: BP 148/90; PULSE 69
[2024-01-12 21:17] LABS: Alanine Aminotransferase 16 U/L (6-35); Albumin Level 3.6 g/dL (3.5-5.1); Alkaline Phosphatase 111 U/L (38-126); Anion Gap 8 mmol/L (4-12); Aspartate Amino Transferase 19 U/L (14-36); Bilirubin,Total 0.2 mg/dL (0.2-1.3); Blood Urea Nitrogen 11 mg/dL (7-17); Calcium 9.4 mg/dL (8.4-10.2); Carbon Dioxide 20 mmol/L (22-30); Chloride 104 mmol/L (98-107); Estimated CRCL calculation 100 ml/min; Estimated Glomerular Filt Rate > 60; Glucose 102 mg/dL (65-110); Potassium 4.1 mmol/L (3.4-5.0); Sodium 132 mmol/L (137-145); Uric Acid 4.9 mg/dL (2.5-7.5)
[2024-01-12 21:30] VITALS: BP 140/85; PULSE 68
--- NOTE | 2024-01-12 21:43 | PC.NURSE ---
No contractions per toco or pt. FHT 135, moderate variability, 15x15 accelerations, no decelerations present.
--- NOTE | 2024-01-12 21:45 | PC.NURSE ---
Spoke with Dr. Millan about pt BP, symptoms, labs, FHT, ctx. Orders received for Fioricet and pt discharge.
[2024-01-12] MEDS: ACETAMINOPHEN/BUTALBITAL/CAFFEINE 325-50-40 MG TABLET (FIORICET) 1 TAB PO (21:55)
== END 2024-01-12 22:05 | disposition home or self-care (01) ==
LOC: ANHOBOP 20:23 → ANHOBPP 20:25
PROVIDERS: Visit Provider Obstetrics & Gynecology
DX: O16.9 Unspecified maternal hypertension, unspecified trimester (principal); O26.899 Other specified pregnancy related conditions, unspecified trimester; H53.8 Other visual disturbances; Z3A.00 Weeks of gestation of pregnancy not specified
CPT/HCPCS: 36415; 59025; 80053; 81003; 82570; 84156; 84550; 85025; 99199; A9270

== ENCOUNTER 2024-02-24 16:25 | Emergency (ER) | payer OTHER, SELFPAY ==
[2024-02-24 16:35] VITALS: BP 125/83; PULSE 82; RESP 18; TEMP 36.8; O2SAT 97
--- NOTE | 2024-02-24 16:41 | ED_ITS ---
HPI - URI/Sore Throat General Chief Complaint: Upper Respiratory Infection Stated Complaint: throat hurts,earache/discharge Time Seen by Provider: 02/24/24 17:00 Source: patient, RN notes reviewed and old records reviewed Mode of arrival: ambulatory Limitations: no limitations History of Present Illness HPI Narrative: Patient presents with complaints of right ear pain for 1 day, she reports drainage began last night, yellowish in color. She denies any fever, chills, sweats. She does report that she has had difficulty with her ears in the past. She denies any injury or trauma. She voices no other concerns or complaints at this time. Related Data Home Medications Medication Instructions Recorded Confirmed vits no.126-ferrous fum 1 tablet PO DAILY 08/08/23 02/24/24 28 mg iron-folic acid 800 mcg tablet (Classic ) docusate sodium 100 mg capsule 100 mg PO DAILY 02/24/24 02/24/24 ferrous sulfate 325 mg (65 mg 325 mg PO DAILY 02/24/24 02/24/24 iron) tablet nifedipine 30 mg tablet,extended 30 mg PO DAILY 02/24/24 02/24/24 release Allergies Allergy/AdvReac Type Severity Reaction Status Date / Time No Known Allergies Allergy Verified 02/24/24 16:31 Review of Systems Review of Systems: All systems reviewed & are unremarkable except as noted in HPI and below Constitutional: Constitutional: Reports no additional constitutional compl aints ENT: Reports system reviewed and no additional complaints, except as documented, Reports ear discharge and Reports otalgia Cardiovascular: Cardiovascular: Reports no additional cardiovascular complaints Respiratory: Respiratory: Reports no additional respiratory complaints Gastrointestinal: Gastrointestinal: Reports no additional gastrointestinal complaints [facility] Past Medical History Medical History Preeclampsia Suppression of menses Surgical History Surgical History Delivery by section (01/29/24) c/s Breech H/O LEEP History of ear surgery Family History Family History Father Hypertension Social History Social History Smoking status: Never smoker Second hand tobacco smoke exposure: No Alcohol intake: never Substance use: never Substance use type: does not use Do You Feel Safe in your Home?: Yes Lack of Transportation: No Lack of Food: Never True Current Housing: I Have Housing Concerned About Future Housing: No Difficulty Paying Gas/Electric Bills: No Difficulty Paying for Meds: No Currently Unemployed: No Education: Trade/Vocational Certificate Difficulty w/ Childcare or Family Care: No Living arrangements: with family Occupation/Education: occupation 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 Gender identity (if verbalized by the patient): Female Sexual Orientation (if Verbalized by the Patient): Straight or Heterosexual Comments At the time of my signature, I reviewed and agree with the nursing past medical, surgical, social, and family history. There is no relevant family history pertinent to the patient complaint. Exam Const: General: cooperative, no acute distress, alert and awake Orientation/consciousness: oriented to person, oriented to place and oriented to time HENMT: Head: normal to inspection Ears: TM abnormal with loss of landmarks on the left and perforated with purulent discharge on the left Resp: Effort & Inspection: normal respiratory effort and able to speak in complete sentences Auscultation: clear to auscultation bilaterally, no crackles, no rales, no rhonchi and no wheezes Cardio: Palpation: normal PMI Rate: regular rate Rhythm: regular rhythm Heart sounds: S1 normal heart sound present and S2 normal heart sound present Neuro: General: oriented to person, oriented to place and oriented to time Cranial nerves: Yes CN's II-XII intact bilaterally Psych: Appearance: grossly normal Thought process: Normal thought process present Insight: Good insight present (Psych) Judgement: Good judgement present (Psych) Course Course Level of Care: Express Care Visit Vital Signs Vital signs: Vital Signs Temperature 98.2 F 02/24/24 16:35 Pulse Rate 82 02/24/24 16:35 Respiratory Rate 18 02/24/24 16:35 Blood Pressure 125/83 02/24/24 16:35 Pulse Oximetry 97 02/24/24 16:35 Oxygen Delivery Room Air 02/24/24 16:35 Temperature 98.2 F 02/24/24 16:35 Pulse Rate 82 02/24/24 16:35 Respiratory Rate 18 02/24/24 16:35 Blood Pressure 125/83 02/24/24 16:35 Pulse Oximetry 97 02/24/24 16:35 Oxygen Delivery Room Air 02/24/24 16:35 Reviewed MDM - URI/Sore Throat MDM Narrative Medical decision making narrative: Exam consistent with otitis media with perforation. Patient less than 1 month , not , so this no concern when she is in medication. Nontoxic appearing. Stable for discharge home on p.o. antibiotics. Follow with primary care provider. Discharge instructions reviewed with patient, as well as provided in writing per nursing staff. The instructions also include specific and strict return/GO TO THE ER as well as f/u information. All questions have been answered, and the patient deny any further questions with discharge and discharge plan. Some parts of this dictation were generated by voice recognition software and may contain typographical and/or grammatical inaccuracies. Differential Diagnosis Differential diagnosis: Likely otitis media, sinusitis and viral infection Medical Records Attestation: I reviewed the patient's medical records. Discharge Plan Discharge Clinical Impression: Otitis media Qualifiers: Otitis media type: suppurative Chronicity: acute Laterality: right Recurrence: not specified as recurrent Spontaneous tympanic membrane rupture: with spontane ous rupture Qualified Code(s): H66.011 - Acute suppurative otitis media with spontaneous rupture of ear drum, right ear Patient Disposition: Home, Self-Care Condition: Stable Instructions: Antibiotic Form, Ear Infection (ED) Additional Instructions: Take medication as prescribed. Follow with primary care provider. Emergency department for new or worse symptoms Patient Language: Slovak Prescriptions: New amoxicillin-pot clavulanate 875-125 mg tablet 1 tablet PO Q12H Qty: 20 0RF No Action nifedipine 30 mg tablet extended release 30 mg PO DAILY ferrous sulfate 325 mg (65 mg iron) tablet 325 mg PO DAILY docusate sodium 100 mg capsule 100 mg PO DAILY Classic 28 mg iron- 800 mcg tablet 1 tablet PO DAILY Follow-up/Referrals: PHYSICIAN,RESIN REMOVER [Primary Care Provider] - Time of Disposition: 17:10
== END 2024-02-24 17:35 | disposition home or self-care (01) ==
PROVIDERS: Emergency Provider Nurse Practitioner Family
DX: H66.011 Acute suppurative otitis media with spontaneous rupture of ear drum, right ear (principal)
CPT/HCPCS: 99213; G0463

== ENCOUNTER 2025-01-11 18:57 | Emergency (ER) | payer OTHER, SELFPAY ==
--- NOTE | ~2025-01-11 | XR_ITS ---
Examination: XR knee RT min 4V Clinical History: rt knee pain laterally below patella /slipped 5x days ago Comparison: None Technique: 4 views right knee Findings/impression: 1. No fracture, dislocation, or effusion, or significant degenerative changes. Reviewed, dictated and finalized at location R.
--- NOTE | 2025-01-11 18:59 | ED.LOWEXIN ---
HPI - Extremity Injury (Lower) General Chief Complaint: Extremity Injury, Lower Stated Complaint: Right Knee Pain Time Seen by Provider: 01/11/25 18:58 Source: patient Mode of arrival: ambulatory Limitations: no limitations History of Present Illness HPI Narrative: Patient is a 34-year-old female who presents with right knee pain for 5 days. Patient states she had initial injury 1 week ago where she fell down steps. That night she used ice and heat and knee felt fine the next morning in the next day. Since then knee has been sore. Patient has taken ibuprofen last night. Denies any numbness, tingling or weakness. Related Data Home Medications ?Medication ?Instructions ?Recorded ?Confirmed ?Last Taken ?Type vits no.126-ferrous fum 1 tablet PO DAILY 08/08/23 02/24/24 01/12/24 History 28 mg iron-folic acid 800 mcg tablet (Classic ) docusate sodium 100 mg capsule 100 mg PO DAILY 02/24/24 02/24/24 Unknown History ferrous sulfate 325 mg (65 mg 325 mg PO DAILY 02/24/24 02/24/24 Unknown History iron) tablet nifedipine 30 mg tablet,extended 30 mg PO DAILY 02/24/24 02/24/24 Unknown History release Allergies Allergy/AdvReac Type Severity Reaction Status Date / Time No Known Allergies Allergy Verified 01/11/25 19:25 Review of Systems Review of Systems: All systems reviewed & are unremarkable except as noted in HPI and below Constitutional: Constitutional: Denies body ache(s), Denies chills, Denies fatigue, Denies fever(s), Denies headache(s), Denies malaise and Denies weakness Eyes: Eyes: Denies blurry vision, Denies irritation and Denies loss of vision ENT: Denies otalgia, Denies headache(s), Denies nasal discharge, Denies sinus pain and Denies sore throat Cardiovascular: Cardiovascular: Denies chest pain, Denies irregular heart rhythm and Denies dyspnea Respiratory: Respiratory: Denies dyspnea Gastrointestinal: Gastrointestinal: Denies abdominal pain, Denies melena, Denies hematochezia, Denies diarrhea, Denies nausea and Denies vomiting Musculoskeletal: Musculoskeletal: Denies back pain, Denies myalgias and Reports arthralgias Integumentary/Breasts: Skin/Breast: Denies pruritus and Denies rash Neurologic: Denies headache(s), Denies loss of vision and Denies weakness Psychiatric: Psychiatric: Reports no additional psychiatric complaints Endocrine: Endocrine: Denies fatigue PMFSH Past Medical History Medical History Suppression of menses Preeclampsia Surgical History Surgical History Delivery by section (01/29/24) c/s Breech H/O LEEP History of ear surgery Family History Family History Father Hypertension Social History Social History Smoking status: Never smoker Second hand tobacco smoke exposure: No Alcohol intake: never Substance use: never Substance use type: does not use Do You Feel Safe in your Home?: Yes Lack of Transportation: No Lack of Food: Never True Current Housing: I Have Housing Concerned About Future Housing: No Difficulty Paying Gas/Electric Bills: No Difficulty Paying for Meds: No Currently Unemployed: No Education: Trade/Vocational Certificate Difficulty w/ Childcare or Family Care: No Living arrangements: with family Occupation/Education: occupation Additional occupation/education comments: [employer]. Gender identity (if verbalized by the patient): Female Sexual Orientation (if Verbalized by the Patient): Straight or Heterosexual Comments At time of signature, agree with nursing past medical, surgical, social and family history. There is no relevant family history pertinent to the presenting complaint. Exam Const: General: cooperative, healthy appearing, comfortable, no acute distress and well nourished Nutritional Appearance: well nourished Orientation/consciousness: patient oriented x3 Limitations: no limitations HENMT: Head: normal to inspection, normocephalic and atraumatic Ears: hearing grossly normal bilaterally and external ears normal Face/Nose/Sinus: Normal external nose present, normal facial exam and face symmetric Face and sinus: normal facial exam and face symmetric Mouth: Yes lip normal Eyes: General: appearance normal, both eyes and all related structures Alignment and Position: alignment normal and position normal Periorbital: periorbital findings normal Eyelids: eyelids normal Pupils: Equal, round and reactive pupils present EOM: EOMs intact bilaterally Neck: Neck: normal visual inspection, full ROM and supple Chest: Chest palpation & inspection: normal inspection of the chest Resp: Effort & Inspection: normal respiratory effort and able to speak in complete sentences Auscultation: clear to auscultation bilaterally Cardio: Rate: regular rate Rhythm: regular rhythm Heart sounds: S1 normal heart sound present and S2 normal heart sound present GI: Inspection: normal to inspection Skin: General skin exam: normal color and no rashes or lesions noted Neuro: General: patient oriented x3 and moves all extremities Cranial nerves: Yes Equal, round and reactive pupils present Speech: normal speech Gait exam (Neuro): Normal gait present Extrem: General: normal to inspection, full ROM and no edema Right lower extremity: hip/thigh Details: normal to inspection and normal ROM, knee Details: normal to inspection, normal ROM and knee ligament exam normal Details: anterior drawer test normal, posterior drawer test normal, valgus stress test normal and varus stress test normal; no tenderness and no swelling and ankle Details: normal to inspection; no tenderness and no swelling Psych: Appearance: grossly normal and well kempt Mental Status: mental status grossly normal Speech and movement: Normal speech and movement present Affect: normal affect Attitude: cooperative Thought process: Normal thought process present Course Course Emergency Course: Patient is aware of diagnosis, understands and agrees to treatment plan. Anticipatory guidance given. Patient agrees to follow-up as directed and is aware of reasons to seek care at the emergency department. Portions of this record may have been created with voice recognition software Level of Care: Express Care Visit Vital Signs Vital signs: Reviewed MDM - Extremity Injury (Lower) MDM Narrative Medical decision making narrative: Patient is able to bear weight and ambulate without pain. No surface of trauma or obvious effusion. No overlying erythema or warmth. The R knee is without obvious asymmetry or deformity when comparing to the L. , Fully extended knee, internal and external rotation. Nontender to palpate of the patella, no effusion. Nontender over the infrapatellar tendon.. Nontender over the medial or lateral joint line, or medial or lateral tibial plateaus. Nontender over the proximal fibular head. Nontender, fullness, or mass of the popliteal fossa. NO quadriceps tenderness. No laxity of the ACL, PCL, MCL, LCL. Negative Power sign. Distal motor and neurovascular status intact. Pt well hydrated appearing, in no respiratory distress, hemodynamically stable. Recommend supportive care. The patient is stable at time of discharge the clinical impression was discussed and the patient was given the opportunity to ask questions, which were addressed as completely as possible given the information available at present. Anticipatory guidance and return to care precautions were discussed and the importance of primary care follow-up was stressed and encouraged. The patient voiced understanding of the plan, indications to return, and the need for follow-up. Exam findings show no acute concerns or changes Patient is appropriate for outpatient treatment and follow-up. Differential Diagnosis Differential diagnosis: Likely acute internal derangement of knee, fracture of femur and other (Knee sprain, knee effusion) Medical Records Attestation: I reviewed the patient's medical records. Imaging Data Radiologist's impression: Examination: XR knee RT min 4V Clinical History: rt knee pain laterally below patella /slipped 5x days ago Comparison: None Technique: 4 views right knee Findings/impression: 1. No fracture, dislocation, or effusion, or significant degenerative changes. Reviewed, dictated and finalized at location R. Discharge Plan Discharge Clinical Impression: Acute internal derangement of knee Qualifiers: Laterality: right Qualified Code(s): M23.91 - Unspecified internal derangement of right knee Patient Disposition: Home Condition: Stable Instructions: Knee Pain (ED) Additional Instructions: Xray showed no fracture. Minimize activities that aggravate the condition The RICE protocol. Follow the RICE protocol as soon as possible after your injury: Rest your knee by not walking on it. Ice should be immediately applied to keep the swelling down. It can be used for 20 to 30 minutes, three or four times daily. Do not apply ice directly to your skin. Compression dressings, bandages or sarah-wraps will immobilize and support your injured knee. Elevate your knee above the level of your heart as often as possible during the first 48 hours. For pain, you may take: Tylenol 650-1000mg by mouth every 4-6 hours. Do not exceed 4000mg in 24 hours. Advil (Ibuprofen) 600 mg by mouth every 6 hours. Do not exceed 2400mg in 24 hours. 8 AM: Tylenol 11 AM: Ibuprofen 2 PM: Tylenol 5 PM: Ibuprofen 8 PM: Tylenol 11 PM: Ibuprofen 2 AM: Tylenol 5 AM: Ibuprofen Please schedule a follow-up visit with your personal physician for further evaluation and treatment within 1week OR If your symptoms persist, change or worsen significantly before you can contact your personal physician then please, without delay, go to the emergency department for further evaluation. Patient Language: Gabonese Prescriptions: No Action nifedipine 30 mg tablet extended release 30 mg PO DAILY ferrous sulfate 325 mg (65 mg iron) tablet 325 mg PO DAILY docusate sodium 100 mg capsule 100 mg PO DAILY amoxicillin-pot clavulanate 875-125 mg tablet 1 tablet PO Q12H Qty: 20 0RF Classic 28 mg iron- 800 mcg tablet 1 tablet PO DAILY Follow-up/Referrals: Casi Moore DO [Physician, Family Practice] - 3 Days Referral Note: Establish care Time of Disposition: 19:43
[2025-01-11 19:05] VITALS: BP 129/89; PULSE 82; RESP 18; TEMP 36.6; O2SAT 99
== END 2025-01-11 19:46 | disposition home or self-care (01) ==
PROVIDERS: Emergency Provider Nurse Practitioner Family
DX: M23.91 Unspecified internal derangement of right knee (principal)
CPT/HCPCS: 73564; 99213; G0463

== ENCOUNTER 2025-03-07 16:40 | Emergency (ER) | payer OTHER, SELFPAY ==
--- NOTE | ~2025-03-07 | XR_ITS ---
PROCEDURE/PROCEDURES: XR foot LT min 3V HISTORY: pain, bruising 4th toe COMPARISON(S): None. TECHNIQUE: 4 radiographic images were submitted for interpretation. FINDINGS: Bones: There are no fractures seen. In particular, there is no fracture seen in the fourth digit. There are no destructive lesions or other lesions identified. Joints: There are no dislocations identified. There is no evidence of erosive arthropathy. IMPRESSION: No acute abnormalities are seen. Reviewed, dictated and finalized at location B. [employer]
[2025-03-07 16:46] VITALS: BP 137/84; PULSE 77; RESP 16; TEMP 36.8; O2SAT 100
--- NOTE | 2025-03-07 16:48 | ED_ITS ---
HPI - Extremity Injury (Lower) General Chief Complaint: Extremity Injury, Lower Stated Complaint: swollen toe Time Seen by Provider: 03/07/25 16:46 Source: patient, RN notes reviewed and old records reviewed Mode of arrival: ambulatory Limitations: no limitations History of Present Illness HPI Narrative: 34-year-old female presents to the [facility] with toes 3 and 4 pain, bruising noted to the 4th toe left foot. Patient states that she fell over some toys this morning. Had taken ibuprofen 1 time, applied some ice. Related Data Home Medications ?Medication ?Instructions ?Recorded ?Confirmed ?Last Taken ?Type docusate sodium 100 mg capsule mg PO 03/07/25 Unknown History Allergies Allergy/AdvReac Type Severity Reaction Status Date / Time No Known Allergies Allergy Verified 03/07/25 16:52 Review of Systems Review of Systems: All systems reviewed & are unremarkable except as noted in HPI and below Constitutional: Constitutional: Reports no additional constitutional comp laints Musculoskeletal: Musculoskeletal: Reports as per HPI Integumentary/Breasts: Skin/Breast: Reports as per HPI PMFSH Past Medical History Medical History Suppression of menses Preeclampsia Surgical History Surgical History Delivery by section (01/29/24) c/s Breech H/O LEEP History of ear surgery Family History Family History Father Hypertension Social History Social History Smoking status: Never smoker Second hand tobacco smoke exposure: No Alcohol intake: never Substance use: never Substance use type: does not use Do You Feel Safe in your Home?: Yes Lack of Transportation: No Lack of Food: Never True Current Housing: I Have Housing Concerned About Future Housing: No Difficulty Paying Gas/Electric Bills: No Difficulty Paying for Meds: No Currently Unemployed: No Education: Trade/Vocational Certificate Difficulty w/ Childcare or Family Care: No Living arrangements: with family Occupation/Education: occupation 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 Gender identity (if verbalized by the patient): Female Sexual Orientation (if Verbalized by the Patient): Straight or Heterosexual Comments At the time of my signature, I reviewed and agree with the nursing past medical, surgical, social, and family history. There is no relevant family history pertinent to the patient complaint. Exam Const: General: cooperative, healthy appearing, comfortable, no acute distress, well developed, alert and well nourished Nutritional Appearance: well nourished Orientation/consciousness: patient oriented x3 Limitations: no limitations HENMT: Head: normal to inspection Eyes: General: appearance normal, both eyes and all related structures Alignment and Position: alignment normal Neck: Neck: normal visual inspection, full ROM, no lymphadenopathy and no meningeal signs Chest: Chest palpation & inspection: normal inspection of the chest Resp: Effort & Inspection: normal respiratory effort and able to speak in complete sentences Cardio: Rate: regular rate Skin: General skin exam: normal color and no rashes or lesions noted Neuro: General: patient oriented x3, gait normal, moves all extremities and no meningeal signs Cognition (Neuro): normal cognition Speech: normal speech Gait exam (Neuro): Normal gait present Extrem: General: normal to inspection, full ROM, capillary refill normal and normal gait Left lower extremity: foot Details: normal capillary refill, ten derness Location: of another digit Location: the 3rd digit and the 4th digit, toes with normal ROM and ecchymosis plantar 4th toe Psych: Appearance: grossly normal and well kempt Mental Status: mental status grossly normal Speech and movement: Normal speech and movement present and Clear speech present Affect: normal affect Attitude: cooperative Course Course Level of Care: Express Care Visit Vital Signs Vital signs: Vital Signs Temperature 98.3 F 03/07/25 16:46 Pulse Rate 77 03/07/25 16:46 Respiratory Rate 16 03/07/25 16:46 Blood Pressure 137/84 03/07/25 16:46 Pulse Oximetry 100 03/07/25 16:46 Oxygen Delivery Room Air 03/07/25 16:46 Temperature 98.3 F 03/07/25 16:46 Pulse Rate 77 03/07/25 16:46 Respiratory Rate 16 03/07/25 16:46 Blood Pressure 137/84 03/07/25 16:46 Pulse Oximetry 100 03/07/25 16:46 Oxygen Delivery Room Air 03/07/25 16:46 Reviewed MDM - Extremity Injury (Lower) MDM Narrative Medical decision making narrative: Patient sitting in exam room. Patient is nontoxic, vitals stable. Patient presents with injury to the left foot. X-ray negative patient appropriate for outpatient treatment with close follow-up Discharge instructions reviewed with patient, as well as provided in writing per nursing staff. The instructions also include specific and strict return/GO TO THE ER as well as f/u information. All questions have been answered, and the patient deny any further questions with discharge and discharge plan. Some parts of this dictation were generated by voice recognition software and may contain typographical and/or grammatical inaccuracies. Differential Diagnosis Differential diagnosis: Likely ankle sprain and strain and other ( contusion, fracture) Imaging Data Radiologist's impression: PROCEDURE/PROCEDURES: XR foot LT min 3V HISTORY: pain, bruising 4th toe COMPARISON(S): None. TECHNIQUE: 4 radiographic images were submitted for interpretation. FINDINGS: Bones: There are no fractures seen. In particular, there is no fracture seen in the fourth digit. There are no destructive lesions or other lesions identified. Joints: There are no dislocations identified. There is no evidence of erosive arthropathy. IMPRESSION: No acute abnormalities are seen. Critical Care Time Critical Care Time Critical Care Time: No Discharge Plan Discharge Clinical Impression: Contusion of foot Qualifiers: Encounter type: initial encounter Laterality: left Qualified Code(s): S90.32XA - Contusion of left foot, initial encounter Patient Disposition: Home Condition: Stable Instructions: Contusion in Adults (ED) Additional Instructions: Your Xray did not show a fracture. Wear good supportive shoes at all times. Ice should be applied to help reduce swelling. It can be used for 20 to 30 minutes, every 2-3 hours while awake. Do not apply ice directly to your skin. You can alternate ibuprofen 600mg and Tylenol 650mg every 4 hours as needed for pain Please schedule a follow-up visit with your personal physician for further evaluation and treatment within 2 weeks especially if symptoms persist. For new or worsening symptoms go directly to the emergency room Patient Language: Senegalese Prescriptions: No Action docusate sodium 100 mg capsule PO Follow-up/Referrals: Daria,DAVID Roque [Primary Care Provider] Stand Alone Forms: Work/School Release IP Time of Disposition: 17:06
== END 2025-03-07 17:12 | disposition home or self-care (01) ==
PROVIDERS: Emergency Provider Nurse Practitioner; PCP Nurse Practitioner
DX: S90.122A Contusion of left lesser toe(s) without damage to nail, initial encounter (principal); W01.0XXA Fall on same level from slipping, tripping and stumbling without subsequent striking against object, initial encounter
CPT/HCPCS: 73630; 99213; G0463